=== PATIENT | female | born 1975 | race Caucasian/White ===

== ENCOUNTER → 2016-09-11 | Outpatient (CLI) | payer OTHER ==
--- NOTE | ~2016-09-11 | ECHO ---
Transthoracic Echocardiography Report (TTE) Demographics Patient Name MYRNA LORENZO Date of Study 09/11/2016 Patient Number [id number] Visit Number [id number] Date of 1975 Room Number Accession Number [id number] Gender Female Age 40 year(s) Referring Emeli Ferguson MD Truck Striker David Caicedo RVT, Physician RDCS Physician Interpreting Emeli Ferguson MD Interior Plant Caretaker Physician Supervising Ordering Physician Emeli Ferguson MD, MD/P Nurse Stress Habilitation Training Specialist Conclusions Contractility Score Summary Normal Left Ventricular contractility was noted. Summary The estimated left ventricular ejection fraction is 60%. Normal left ventricle size and function. Diastolic assessment reveals normal relaxation. The left atrium is mildly dilated. Dilated IVC with poor inspiratory collapse consistent with elevated RA pressure. Mild mitral regurgitation by color Doppler. Moderate tricuspid regurgitation by color Doppler. Procedure Type of Study TTE procedure:2D Echocardiogram. Procedure Date Date: 09/11/2016 Start: 04:47 PM Study Location: Echo Lab Technical Quality: Good visualization Indications:Bilateral lower extremity edema. Appropriate Use Criteria: 8 Patient Status: Routine Rhythm: Sinus bradycardia HR: 52 bpm M-Mode/2D Measurements LV Diastolic Dimension: 4.9 cm LV Systolic Dimension: 3.41 cm LV Septum Diastolic: 0.98 cm LV PW Diastolic: 0.92 cm AO Root Dimension: 2.2 cm Cardiac Output: 3.88 l/min AV Cusp Separation: 1.7 cm RV Diastolic Dimension: 3.14 cm LA volume: 62 ml LVOT: 1.8 cm RV Base: 3.34 cm LVOT VTI: 29.3 cm RV Mid: 2.93 cm LV Stroke volume: 74.52 ml TAPSE: 3.19 cm TDI-S': 19.8 cm/s Doppler Measurements AV Peak Velocity: 1.91 m/s MV Peak E-Wave: 1.02 m/s AV Peak Gradient: 14.59 mmHg MV Peak A-Wave: 0.52 m/s AV Mean Gradient: 7 mmHg MV E/A Ratio: 1.95 LVOT Peak Velocity: 1.24 m/s MV P1/2t: 75 msec TR Gradient:22.66 mmHg PV Peak Velocity: 1.2 m/s Estimated RAP:8 mmHg PV Peak Gradient: 5.76 mmHg Estimated RVSP: 31 mmHg Estimated PASP: 30.66 mmHg E' Septal Velocity: 0.14 m/s A' Septal Velocity: 0.08 m/s E' Lateral Velocity: 0.14 m/s A' Lateral Velocity: 0.11 m/s Findings Left Ventricle Normal left ventricle size and function. Diastolic assessment reveals normal relaxation. Right Ventricle Normal right ventricle structure and function. Left Atrium Normal left atrial size. Right Atrium Normal right atrial size. Dilated IVC with poor inspiratory collapse consistent with elevated RA pressure. Mitral Valve Mild mitral regurgitation by color Doppler. Aortic Valve Normal aortic valve structure and function. Tricuspid Valve Moderate tricuspid regurgitation by color Doppler. Pulmonic Valve Normal pulmonic valve structure and function. Pericardial Effusion No evidence of pericardial effusion. Miscellaneous Visualized portions of the aortic root and ascending aorta appear normal in size. Pleural Effusion No evidence of pleural effusion. Contractility Score LV regional wall motion:(0-Non visualized 1-Normal 2-Hypokinesis 3-Akinesis 4-Dyskinesis 5-Aneurysm) Signature dtt: Marty Sainz (cardio) dtd: 09/11/16 [id number] Physician Self Edit
== END | disposition disaster alternative care site (69) ==
LOC: GCAR 16:28
DX: R06.02 Shortness of breath (principal); I72.9 Aneurysm of unspecified site; I34.0 Nonrheumatic mitral (valve) insufficiency; I07.1 Rheumatic tricuspid insufficiency; R60.9 Edema, unspecified